=== PATIENT | male | born 1950 | race Caucasian/White ===

== ENCOUNTER → 2018-02-19 | Outpatient (CLI) | payer OTHER ==
[~2018-02-19] VITALS: Ht 175.3 cm; Wt 99.8 kg
[~2018-02-19] MED LIST: ADVAIR 250/501 DISK IH; ADVAIR 500/501 DISK IH; ALBUTEROL2.5 MG/3 M IH; ALTACE10 MG PO; AMBIEN10 MG PO; ARNUITY ELLIPT50 MCG IH; ASPIR 8181 M1 PO; ASPIR-TRIN325 M1 PO; ASPIRIN81 M2 PO; Ambien PO; BENICAR20 MG PO; BYSTOLIC5 MG PO; COZAAR100 MG PO; ENDOCET 5-3251 EACH PO; FEOSOL325 MG PO; FLEXERIL10 MG PO; Flexeril PO; HABITROL,NICODE21 MG TD; HERBAL LIFE PO; HUMIBID LA,MUC600 MG PO; INJECT-EASE1 EACH; INSULIN SQ; KLONOPIN0.5 M1 PO; KlonoPIN PO; LASIX40 MG PO; LIPITOR80 MG PO; METFORMIN HCL1000 MG PO; NOVOLOG PE100 UNITS/ SC; OXYCODONE HCL5 M1 PO; OXYCODONE-ACET1 EACH PO; OxyCONTIN PO; Proventil,Ventolin H IH; SENOKOT S,PE1 TABLET PO; SPIRIVA1 INHALATI IH; TOPROL XL100 MG PO; TOUJEO SOL300 UNIT/1 SC; TRICOR145 MG PO; VENTOLIN HFA18 GM IH; VITAMIN B125000 MCG PO; VITAMIN D32000 UNI1 PO; ZETIA10 MG PO; ZOLOFT100 MG PO
== END | disposition home or self-care (01) ==
LOC: AMB 13:13
PROVIDERS: Internal Medicine Pulmonary Disease
PROC: 0BD48ZX Extraction of Right Upper Lobe Bronchus, Via Natural or Artificial Opening Endoscopic, Diagnostic (ICD-10-PCS; principal; 2018-02-19)
PROC: 0BB48ZX Excision of Right Upper Lobe Bronchus, Via Natural or Artificial Opening Endoscopic, Diagnostic (ICD-10-PCS; principal; 2018-02-19)
DX: C34.11 Malignant neoplasm of upper lobe, right bronchus or lung (principal); I10 Essential (primary) hypertension; E11.9 Type 2 diabetes mellitus without complications; I25.2 Old myocardial infarction; J44.9 Chronic obstructive pulmonary disease, unspecified; I71.4 Abdominal aortic aneurysm, without rupture; G47.33 Obstructive sleep apnea (adult) (pediatric); Z87.891 Personal history of nicotine dependence; Z79.82 Long term (current) use of aspirin; Z79.84 Long term (current) use of oral hypoglycemic drugs
CPT/HCPCS: 82948; 87070; 87116; 87205; 87206; 88108; 88173; J0461; J2250; J2550; J3010; J7643

== ENCOUNTER 2018-04-20 13:00 | Inpatient (IN) | payer OTHER ==
[~2018-04-20] VITALS: Ht 177.8 cm; Wt 95.8 kg
[~2018-04-20 13:00] MED LIST changes: +PROAIR HFA8.5 GM IH; -VENTOLIN HFA18 GM IH; -VITAMIN D32000 UNI1 PO; +VITAMIN D35000 UNIT PO
[2018-04-20 14:07] LABS: HEMATOCRIT 30.3 % (38.0-50.0); HEMOGLOBIN 9.8 G/DL (12.5-16.6); MCH 30.4 PG (29.0-34.0); MCHC 32.3 G/DL (30.0-36.0); MCV 94.1 FL (86-99); PLATELET COUNT 209 K/uL (156-360); RBC DIS.WIDTH-CV 14.8 % (11.8-14.6); RBC DIS.WIDTH-SD 51.1 % (39-53); RED BLOOD COUNT 3.22 M/uL (4.00-5.50); WHITE BLOOD COUNT 5.7 K/uL (4.1-10.2)
[2018-04-20 14:12] LABS: PTT 27.6 SEC (25-37)
[2018-04-20 14:13] LABS: CHLORIDE 98 mEq/L (99-109); POTASSIUM 4.1 mEq/L (3.7-5.4); SODIUM 141 mEq/L (136-147)
[2018-04-20 14:15] LABS: GLUCOSE 194 mg/dL (70-99); TOTAL PROTEIN 7.4 g/dL (6.4-8.3)
[2018-04-20 14:17] LABS: TOTAL BILIRUBIN 0.4 mg/dL (0.0-1.0)
[2018-04-20 14:19] LABS: ALKALINE PHOSPHATASE 75 IU/L (3-129); CREATININE 0.8 mg/dL (0.6-1.3); GFR ESTIMATE (CALCULATED) > 59 mL/min/ (58.99-99999)
[2018-04-20 14:20] LABS: AST (GOT) 11 IU/L (2-34); UREA NITROGEN (BUN) 10 mg/dL (9-23)
[2018-04-20 14:22] LABS: ALT (GPT) 9 IU/L (3-49)
[2018-04-20] MEDS ORDERED: FLEXERIL10 MG PO (14:37)
[2018-04-20] MEDS ORDERED: COZAAR100 MG PO (14:38)
[2018-04-20] MEDS ORDERED: FLONASE16 G1 BOTH NARES (14:42)
[2018-04-20 18:02] VITALS: BP 146/99; BP 149/109
[2018-04-20 19:11] VITALS: BP 132/95
[2018-04-21 00:15] VITALS: BP 126/83
[2018-04-21 03:30] VITALS: BP 130/88
[2018-04-21 07:29] VITALS: BP 169/82
[2018-04-21 08:15] LABS: HEMATOCRIT 31.6 % (38.0-50.0); HEMOGLOBIN 10.2 G/DL (12.5-16.6); MCHC 32.3 G/DL (30.0-36.0); MCV 92.9 FL (86-99); RBC DIS.WIDTH-CV 15.1 % (11.8-14.6); RBC DIS.WIDTH-SD 50.7 % (39-53); WHITE BLOOD COUNT 6.2 K/uL (4.1-10.2)
[2018-04-21 08:23] LABS: CHLORIDE 99 MEQ/L (99-109); CREATININE 0.5 MG/DL (0.6-1.3); GFR ESTIMATE (CALCULATED) > 59 mL/min/ (58.99-99999); MAGNESIUM 1.6 mg/dl (1.3-2.7); SODIUM 142 MEQ/L (136-147); UREA NITROGEN (BUN) 9 mg/dL (9-23)
[2018-04-21 08:28] LABS: GLUCOSE 93 mg/dL (70-99)
[2018-04-21 08:41] LABS: PLAT.SUFFICIENCY ADEQUATE; PLATELET COUNT 217 K/uL (156-360)
[2018-04-21 11:18] VITALS: BP 90/62
[2018-04-21 19:00] VITALS: BP 126/80
[2018-04-21 23:00] VITALS: BP 135/87
[2018-04-22 04:15] VITALS: BP 133/82
[2018-04-22 05:35] LABS: BASOPHIL (%) 0.4 % (0-1); EOSINOPHIL (%) 0.6 % (0-5); HEMATOCRIT 30.1 % (38.0-50.0); HEMOGLOBIN 9.4 G/DL (12.5-16.6); LYMPHOCYTE (%) 29.1 % (15-42); LYMPHOCYTE COUNT 1.4 K/uL (1.0-2.8); MCH 29.3 PG (29.0-34.0); MCHC 31.2 G/DL (30.0-36.0); MCV 93.8 FL (86-99); MONOCYTE (%) 10.3 % (3-12); MONOCYTE COUNT 0.5 K/uL (0-0.8); NEUTROPHIL (%) 59.6 % (45-76); NEUTROPHIL COUNT 2.9 K/uL (1.8-6.4); PLATELET COUNT 193 K/uL (156-360); RBC DIS.WIDTH-CV 15.2 % (11.8-14.6); RBC DIS.WIDTH-SD 51.6 % (39-53); RED BLOOD COUNT 3.21 M/uL (4.00-5.50); WHITE BLOOD COUNT 4.9 K/uL (4.1-10.2)
[2018-04-22 06:16] LABS: CHLORIDE 101 MEQ/L (99-109); CREATININE 0.6 MG/DL (0.6-1.3); GFR ESTIMATE (CALCULATED) > 59 mL/min/ (58.99-99999); POTASSIUM 3.8 MEQ/L (3.7-5.4); SODIUM 142 MEQ/L (136-147); UREA NITROGEN (BUN) 14 mg/dL (9-23)
[2018-04-22 06:18] LABS: GLUCOSE 63 mg/dL (70-99)
[2018-04-22 07:21] VITALS: BP 144/75
[2018-04-22 17:06] LABS: GLUCOSE 127 mg/dL (70-99)
[2018-04-22 17:49] VITALS: BP 162/95
[2018-04-22 19:00] VITALS: BP 146/82
[2018-04-22 23:00] VITALS: BP 152/87
[2018-04-23] VITALS (7 sets, daily range): BP systolic 117–158; BP diastolic 65–90
[2018-04-23 06:00] LABS: BASOPHIL (%) 0.2 % (0-1); EOSINOPHIL (%) 0.5 % (0-5); HEMATOCRIT 29.2 % (38.0-50.0); HEMOGLOBIN 9.1 G/DL (12.5-16.6); LYMPHOCYTE (%) 23.8 % (15-42); MCH 29.4 PG (29.0-34.0); MCHC 31.2 G/DL (30.0-36.0); MCV 94.5 FL (86-99); MONOCYTE (%) 9.2 % (3-12); MONOCYTE COUNT 0.4 K/uL (0-0.8); NEUTROPHIL (%) 66.3 % (45-76); NEUTROPHIL COUNT 2.8 K/uL (1.8-6.4); PLATELET COUNT 187 K/uL (156-360); RBC DIS.WIDTH-CV 15.4 % (11.8-14.6); RED BLOOD COUNT 3.09 M/uL (4.00-5.50); WHITE BLOOD COUNT 4.2 K/uL (4.1-10.2)
[2018-04-23 06:23] LABS: CHLORIDE 98 MEQ/L (99-109); CREATININE 0.6 MG/DL (0.6-1.3); GFR ESTIMATE (CALCULATED) > 59 mL/min/ (58.99-99999); GLUCOSE 163 mg/dL (70-99); POTASSIUM 3.9 MEQ/L (3.7-5.4); SODIUM 142 MEQ/L (136-147); UREA NITROGEN (BUN) 12 mg/dL (9-23)
[2018-04-23] MEDS ORDERED: CARDIZEM CD,CA180 MG PO (12:00)
[2018-04-24 03:34] VITALS: BP 135/73
[2018-04-24 07:45] VITALS: BP 145/82
[2018-04-24 11:13] VITALS: BP 140/90
[2018-04-24 15:54] VITALS: BP 130/83
== END 2018-04-24 18:05 | disposition home or self-care (01) | DRG 181 ==
LOC: EME 13:00 → EDOF 14:27 → 5EAST 14:27 → 4EAST 14:27 → ENRESERV 14:43 → CANRESERV 14:54 → ENRESERV 14:54 → 4EAST 17:24 → 5EAST 04-22 23:50
PROVIDERS: Emergency Medicine Emergency Medical Services; Hospitalist
PROC: DB023ZZ Beam Radiation of Lung using Electrons (ICD-10-PCS; principal; 2018-04-22)
DX: C34.11 Malignant neoplasm of upper lobe, right bronchus or lung (principal); C77.1 Secondary and unspecified malignant neoplasm of intrathoracic lymph nodes; R04.2 Hemoptysis; I48.91 Unspecified atrial fibrillation; T82.538A Leakage of other cardiac and vascular devices and implants, initial encounter; Y83.1 Surgical operation with implant of artificial internal device as the cause of abnormal reaction of the patient, or of later complication, without mention of misadventure at the time of the procedure; I71.2 Thoracic aortic aneurysm, without rupture; K21.9 Gastro-esophageal reflux disease without esophagitis; F41.9 Anxiety disorder, unspecified; I10 Essential (primary) hypertension; E11.9 Type 2 diabetes mellitus without complications; J44.9 Chronic obstructive pulmonary disease, unspecified; I25.10 Atherosclerotic heart disease of native coronary artery without angina pectoris; I27.81 Cor pulmonale (chronic); I27.20 Pulmonary hypertension, unspecified; E66.9 Obesity, unspecified; E78.5 Hyperlipidemia, unspecified; Z99.81 Dependence on supplemental oxygen; I25.2 Old myocardial infarction; Z95.5 Presence of coronary angioplasty implant and graft; Z79.4 Long term (current) use of insulin; Z87.891 Personal history of nicotine dependence; Z79.82 Long term (current) use of aspirin; Z68.31 Body mass index [BMI] 31.0-31.9, adult
CPT/HCPCS: 71046; 77295; 77300; 77301; 77334; 77338; 77412; 77417; 77470; 80048; 80053; 82948; 83735; 84999; 85025; 85027; 85610; 85730; 93005; 94640; 94799; 99281; 99285; J1160; J1815; J7030; J7050